=== PATIENT | male | born 2000 | race Caucasian/White ===

== ENCOUNTER 2025-03-26 14:08 | Emergency (ER) | payer OTHER, SELFPAY ==
[2025-03-26 14:23] VITALS: BP 127/75; PULSE 75; RESP 16; TEMP 36.9; O2SAT 99
--- NOTE | 2025-03-26 16:07 | ED_ITS ---
HPI - General Adult General Chief complaint: Dental/Oral Stated complaint: Mouth Infection Time Seen by Provider: 03/26/25 15:00 Source: patient and RN notes reviewed Mode of arrival: ambulatory Limitations: no limitations History of Present Illness HPI narrative: 25-year-old male presents [facility] complaining of sores in his mouth for 2 days. Patient thought he made his sores worse from cleaning his teeth because he has bad teeth. Patient reports congestion and fevers well. Patient reports that the source started behind his lower lip and since then has spread to his cheeks, tongue, tonsils and pharynx. Patient denies any drainage. He reports the sores or painful. Patient denies any concern for STIs. Patient denies any rash on hands or feet or anywhere else on his body. Related Data Allergies Allergy/AdvReac Type Severity Reaction Status Date / Time No Known Allergies Allergy Unverified 03/26/25 14:37 Review of Systems Review of Systems: CONSTITUTIONAL: Positive for fevers. Negative for chills, or sweats. EYES: Denies visual changes, redness, or discharge. ENT: Denies rhinorrhea, or otalgia. Positive for sore throat, sores, congestion. MOUTH: Positive for mouth sores. CARDIOVASCULAR: Denies chest pain, palpitations, or edema. RESPIRATORY: Denies cough or dyspnea. GASTROINTESTINAL: Denies abdominal pain, nausea, vomiting, or diarrhea. GENITOURINARY: Denies dysuria or hematuria. SKIN: Denies rash or itching. MUSCULOSKELETAL: Denies back pain, joint pain, or myalgia. NEUROLOGIC: Denies headache, numbness, or weakness. PSYCHIATRIC: Denies anxiety or depression. All other systems reviewed are negative, except as documented in HPI. PMFSH Comments At the time of my signature, I reviewed and agree with the nursing past medical, surgical, social, and family history. There is no relevant family history pertinent to the patient complaint. Exam Narrative: GENERAL: This is a well-nourished, well-developed adult, in no apparent distress. They are non ill-appearing, nontoxic appearing. HEAD: normocephalic, atraumatic. EYES: Sclera clear/white. Conjunctiva normal. Vision is grossly intact. Extraocular movements intact EARS: External ears normal, auditory canals clear and without drainage, TMs normal without perforation. Hearing grossly intact. NOSE: External nose normal with no obvious nasal discharge, nasal turbinates erythematous without rhinorrhea. THROAT/MOUTH: Mucous membranes moist, posterior pharynx erythemic without swelling. Uvula midline. Erythematous macules and vesicles throughout the patient's tonsils and oropharynx. Lesions are painful. Lesions are also present to the buccal mucosa and tongue. No missing teeth. No gingivitis. Some tooth decay present. No cavities. LIP: Single papule to the left lower lip. No blistering or open sore. No exudate. No tenderness to palpation. NECK: Neck supple, non-tender without lymphadenopathy, masses or thyromegaly. CARDIOVASCULAR: Regular rate and rhythm without murmurs, gallops, or rubs. RESPIRATORY: Clear to auscultation. Breath sounds equal bilaterally. No wheezes, rales, or rhonchi. SKIN: warm, Dry, intact with no suspicious lesions or rash, good texture and turgor. NEURO: awake, alert, and oriented to person, place and time. There were no obvious focal neurologic abnormalities. EXTREMITIES: No joint tenderness, effusion, or edema noted. BACK: Nontender without deformity. No CVA tenderness. Course Course Emergency Course: Portions of this record may have been created with voice recognition software Level of Care: Express Care Visit Vital Signs Vital signs: Vital Signs Temperature 98.5 F 03/26/25 14:23 Pulse Rate 75 03/26/25 14:23 Respiratory Rate 16 03/26/25 14:23 Blood Pressure 127/75 03/26/25 14:23 Pulse Oximetry 99 03/26/25 14:23 Temperature 98.5 F 03/26/25 14:23 Pulse Rate 75 03/26/25 14:23 Respiratory Rate 16 03/26/25 14:23 Blood Pressure 127/75 03/26/25 14:23 Pulse Oximetry 99 03/26/25 14:23 Reviewed Medical Decision Making MDM Narrative Medical decision making narrative: Symptoms are likely from herpangina. Given numerous sores in patient's oropharynx will swab patient for herpes. Herpes culture is pending. Patient denies any concern for STIs. Patient states he does share his vape with other people. No rash present on patient's arms, hands, feet or anywhere else on his body. Will prescribe viscous lidocaine as needed for pain. Discussed physical exam findings. Advised supportive measures and signs/symptoms to go to the ER. Pt is appropriate for outpt treatment and f/u. Differential Diagnosis Differential Diagnosis: [id number], herpangina, herpes simplex virus Vital Signs Vital Signs: Vital Signs Temperature 98.5 F 03/26/25 14:23 Pulse Rate 75 03/26/25 14:23 Respiratory Rate 16 03/26/25 14:23 Blood Pressure 127/75 03/26/25 14:23 Pulse Oximetry 99 03/26/25 14:23 Temperature 98.5 F 03/26/25 14:23 Pulse Rate 75 03/26/25 14:23 Respiratory Rate 16 03/26/25 14:23 Blood Pressure 127/75 03/26/25 14:23 Pulse Oximetry 99 03/26/25 14:23 Lab Data Labs: Lab Results 03/26/25 Range/Units 15:07 Herpes Virus Source Pending Herpes Simplex Culture Pending Critical Care Time Critical Care Time Critical Care Time: No Discharge Plan Discharge Clinical Impression: Herpangina Patient Disposition: Home Condition: Stable Instructions: Hand, Foot, and Mouth Disease (ED) Additional Instructions: We will contact you about the results of your herpes swab. It is likely that you have a virus called herpangina. This virus is normally self-limiting and resolves within 10 days. You may take Tylenol or ibuprofen as needed for pain or fevers. You may use viscous lidocaine as needed for pain in your mouth. Follow-up primary care provider in 3-5 days. If your symptoms worsen you develop difficulty swallowing or breathing, any other concerns please go to the ER media Patient Language: Kyr[place]z Prescriptions: New lidocaine HCl [Lidocaine Viscous] 2 % solution 1 applic mucous membrane TID PRN (Reason: pain) Qty: 100 0RF Follow-up/Referrals: PHYSICIAN,[employer] SAL[employer] REPRESENTATIVE [Primary Care Provider] - Time of Disposition: 15:20
[2025-03-29 13:19] LABS: Source THROAT
== END 2025-03-26 15:22 | disposition home or self-care (01) ==
DX: B08.5 Enteroviral vesicular pharyngitis (principal)
CPT/HCPCS: 87140; 87255; 99203; G0463